=== PATIENT | female | born 1975 | race Hispanic/Latino ===

== ENCOUNTER 2018-05-20 10:38 | Emergency (ER) | payer OTHER ==
[2018-05-20] MEDS ORDERED: LIDOCAINE HCL 1% 20 ML VIAL ONE (11:11)
[2018-05-20] MEDS ORDERED: TETANUS/DIPHTHERIA TOXOID [ADULT] 0.5 ML VIAL IM ONE (11:12)
== END 2018-05-20 12:13 | disposition home or self-care (01) ==
LOC: EDH 10:38
DX: S61.412A Laceration without foreign body of left hand, initial encounter (principal); W26.0XXA Contact with knife, initial encounter; Y93.89 Activity, other specified; Y92.69 Other specified industrial and construction area as the place of occurrence of the external cause; Y99.8 Other external cause status
CPT/HCPCS: 12042; 90471; 90714